=== PATIENT | male | born 1955 | race Caucasian/White ===

== ENCOUNTER 2017-04-23 09:32 | Emergency (ER) | payer BC ==
[2017-04-23 11:16] VITALS: BP 145/81
--- NOTE | 2017-04-23 11:44 | UC ---
Skin Complaint HPI - HPI Summary HPI Summary: Pt presents with c/o tick bite to abdomen. Pt removed tick this morning. Is now concerned that area immediately around skin is slightly erythematous. Pt has history of Lyme in 2010, treated with doxycycline X 3 months. - History of Current Complaint Chief Complaint: UCGeneralIllness Time Seen by Provider: 04/23/17 11:22 Stated Complaint: TICK BITE Hx Obtained From: Patient Onset/Duration: Sudden Onset, Lasting Hours Skin Exposure Onset/Duration: Hours Ago Timing: Constant Onset Severity: Mild Current Severity: Mild Location: Discrete - mid epi umbilicus, anterior abdomen, ~ 2 mm in diameter Character: Redness Aggravating Factor(s): Nothing Alleviating Factor(s): Unknown Associated Signs & Symptoms: Positive: Negative Related History: Insect Bite/Sting Similar Episode/Dx as: lyme - Allergy/Home Medications Allergies/Adverse Reactions: Allergies Allergy/AdvReac Type Severity Reaction Status Date / Time Hydrochlorothiazide Allergy Unknown Unknown Verified 04/23/17 11:00 Reaction Details Venlafaxine [From Effexor] Allergy Unknown Unknown Verified 04/23/17 11:00 Reaction Details CI Pigment Blue 63 Allergy Tinnitus Verified 04/23/17 11:00 [From Cymbalta] Duloxetine [From Cymbalta] Allergy Tinnitus Verified 04/23/17 11:00 Paroxetine [From Paxil] AdvReac Unknown Hallucinati Verified 04/23/17 11:00 ons dust Allergy Unknown Unknown Uncoded 04/23/17 11:00 Reaction Details enviromental Allergy Unknown Unknown Uncoded 04/23/17 11:00 Reaction Details mold Allergy Unknown Unknown Uncoded 04/23/17 11:00 Reaction Details wool Allergy Unknown Unknown Uncoded 04/23/17 11:00 Reaction Details Home Medications: Home Medications ALPRAZolam TAB* [Xanax TAB*] 0.5 mg PO TID PRN 04/23/17 [History Confirmed 04/23] BuPROPion XL* [Bupropion XL*] 300 mg PO DAILY 04/23/17 [History Confirmed ] Desmopressin 0.01% NASAL* [Ddavp 0.01% Nasal *] 1 puff .SEE ORDER SEE INSTRUCTIONS 04/23/17 [History Confirmed 04/23/17] FLUoxetine CAP* [Prozac CAP*] 20 mg PO DAILY 04/23/17 [History Confirmed ] Fenofibrate 54 mg PO DAILY 04/23/17 [History Confirmed 04/23/17] HYDROcodone/ACETAM 10-325 MG(N 1 tab PO Q6H 04/23/17 [History Confirmed 04/23/17 ] Lisinopril TAB* [Prinivil TAB 10 MG*] 40 mg PO DAILY 04/23/17 [History Confirmed 04/23/17] Melatonin 3 mg PO BEDTIME 04/23/17 [History Confirmed 04/23/17] Meloxicam 7.5 mg PO BID 04/23/17 [History Confirmed 04/23/17] Mis Natural Products [Relax & Sleep] 1 tab PO BEDTIME 04/23/17 [History Confirmed 04/23/17] Omeprazole CAP* [Prilosec CAP* 20 MG] 20 mg PO DAILY 04/23/17 [History Confirmed 04/23/17] Primidone TAB(*) [Mysoline TAB(*)] 50 mg PO TID 04/23/17 [History Confirmed ] Tadalafil [Cialis] 5 mg PO DAILY 04/23/17 [History Confirmed 04/23/17] Testosterone [Androgel] 20.25 mg TD DAILY 04/23/17 [History Confirmed 04/23/17] Theanine [l-Theanine] 100 mg PO DAILY 04/23/17 [History Confirmed 04/23/17] Zolpidem CR (NF) [Ambien CR (NF)] 12.5 mg PO BEDTIME PRN 04/23/17 [History Confirmed 04/23/17] Zolpidem TAB* [Ambien*] 10 mg PO BEDTIME PRN 04/23/17 [History Confirmed ] amLODIPine TAB* [Norvasc 5 mg TAB*] 10 mg PO DAILY 04/23/17 [History Confirmed 04/23/17] clonazePAM TAB(*) [Klonopin TAB(*)] 0.5 mg PO QID PRN 04/23/17 [History Confirmed 04/23/17] oxyCODONE SR TAB(*) [Oxycontin 20 mg (*)] 20 mg PO BID 04/23/17 [History Confirmed 04/23/17] Review of Systems Constitutional: Negative Skin: Rash Eyes: Negative ENT: Negative Respiratory: Negative Cardiovascular: Negative Gastrointestinal: Negative Genitourinary: Negative Motor: Negative Neurovascular: Negative Musculoskeletal: Negative Neurological: Negative Psychological: Negative Is Patient Immunocompromised?: No All Other Systems Reviewed And Are Negative: Yes PMH/Surg Hx/FS Hx/Imm Hx Previously Healthy: Yes - history of lyme - Surgical History Surgical History: Yes Surgery Procedure, Year, and Place: - vasectomy & lateral sphincterotomy. 01/08 - (right) ring finger cyst biopsy - Family History Known Family History: Positive: Cardiac Disease - Social History Occupation: Retired Lives: With Family Alcohol Use: Daily Alcohol Amount: 1-2 oz drink Substance Use Type: None Smoking Status (MU): Never Smoked Tobacco Have You Smoked in the Last Year: No Physical Exam Triage Information Reviewed: Yes Appearance: Well-Appearing Vital Signs: Initial Vital Signs Temp 97.9 F 04/23/17 10:49 Pulse 79 04/23/17 10:49 Resp 14 04/23/17 10:49 BP 145/81 04/23/17 10:49 Vital Signs Reviewed: Yes Eye Exam: Normal ENT Exam: Normal Dental Exam: Normal Neck exam: Normal Respiratory Exam: Normal Cardiovascular Exam: Normal Musculoskeletal Exam: Normal Neurological Exam: Normal Psychological Exam: Normal Skin Exam: Other - small circular are ~ 2mm in diameter area on abdomen, erythematous, non tender, epi umbilicus Course/Dx - Differential Diagnoses - Skin Complaint Differential Diagnoses: Local Allergic Reaction, Tick Born Illness - Diagnoses Provider Diagnoses: Insect bite,. localized reaction Discharge - Discharge Plan Condition: Stable Disposition: HOME Prescriptions: DOXYcycline CAP(*) [DOXYcycline 100MG CAP(*)] 200 mg PO DAILY #2 cap Patient Education Materials: Tick Bite (ED) Referrals: Leslie Thapa MD [Primary Care Provider] - If Needed
== END 2017-04-23 11:52 | disposition home or self-care (01) ==
LOC: UCCORT 09:32
DX: S30.861A Insect bite (nonvenomous) of abdominal wall, initial encounter (principal); W57.XXXA Bitten or stung by nonvenomous insect and other nonvenomous arthropods, initial encounter; Y92.9 Unspecified place or not applicable
CPT/HCPCS: 99212; G0463

== ENCOUNTER 2017-04-30 15:09 | Emergency (ER) | payer BC ==
[2017-04-30 16:10] VITALS: BP 156/77
[2017-04-30] MEDS ORDERED: DOXYcycline CAP(*) 100 MG PO ONE (16:15)
--- NOTE | 2017-04-30 16:20 | UC ---
Skin Complaint HPI - HPI Summary HPI Summary: patient found tick in the left inner thigh, removed the obdy, head still inside , he has been trying to dig it out. - History of Current Complaint Chief Complaint: [facility] Time Seen by Provider: 04/30/17 16:10 Stated Complaint: SKIN COMPLAINT (TICK) Hx Obtained From: Patient Onset/Duration: Sudden Onset Skin Exposure Onset/Duration: Hours Ago Timing: Constant Onset Severity: Mild Current Severity: None Location: Discrete Character: Redness, Raised, Painful Related History: Insect Bite/Sting - Allergy/Home Medications Allergies/Adverse Reactions: Allergies Allergy/AdvReac Type Severity Reaction Status Date / Time Hydrochlorothiazide Allergy Unknown Unknown Verified 04/30/17 15:59 Reaction Details Venlafaxine [From Effexor] Allergy Unknown Unknown Verified 04/30/17 15:59 Reaction Details CI Pigment Blue 63 Allergy Tinnitus Verified 04/30/17 15:59 [From Cymbalta] Duloxetine [From Cymbalta] Allergy Tinnitus Verified 04/30/17 15:59 Paroxetine [From Paxil] AdvReac Unknown Hallucinati Verified 04/30/17 15:59 ons dust Allergy Unknown Unknown Uncoded 04/30/17 15:59 Reaction Details enviromental Allergy Unknown Unknown Uncoded 04/30/17 15:59 Reaction Details mold Allergy Unknown Unknown Uncoded 04/30/17 15:59 Reaction Details wool Allergy Unknown Unknown Uncoded 04/30/17 15:59 Reaction Details Review of Systems Constitutional: Negative Skin: Other - tick bite Eyes: Negative ENT: Negative Respiratory: Negative Cardiovascular: Negative Gastrointestinal: Negative Genitourinary: Negative Motor: Negative Neurovascular: Negative Musculoskeletal: Negative Neurological: Negative Psychological: Negative Is Patient Immunocompromised?: No All Other Systems Reviewed And Are Negative: Yes PMH/Surg Hx/FS Hx/Imm Hx Previously Healthy: Yes - Surgical History Surgical History: Yes Surgery Procedure, Year, and Place: - vasectomy. 01/08 - (right) ring finger cyst biopsy - Family History Known Family History: Positive: Cardiac Disease - Social History Alcohol Use: Daily Alcohol Amount: 1-2 oz drink Substance Use Type: None Smoking Status (MU): Never Smoked Tobacco Have You Smoked in the Last Year: No Physical Exam Triage Information Reviewed: Yes Appearance: Well-Appearing, Well-Nourished, Pain Distress Vital Signs: Initial Vital Signs Temp 98.1 F 04/30/17 16:05 Pulse 82 04/30/17 16:05 Resp 14 04/30/17 16:05 BP 156/77 04/30/17 16:05 Vital Signs Reviewed: Yes Eye Exam: Normal ENT Exam: Normal Dental Exam: Normal Neck exam: Normal Respiratory Exam: Normal Cardiovascular Exam: Normal Abdominal Exam: Normal Musculoskeletal Exam: Normal Neurological Exam: Normal Psychological: Positive: Normal Response To Family Skin: Positive: Other - area of erythema and open center from patient digging out the tick, Course/Dx - Course Course Of Treatment: hx obtained, exam performed, meds reviewed, given dose of doxycyline. - Differential Diagnoses - Skin Complaint Differential Diagnoses: Tick Born Illness - Diagnoses Provider Diagnoses: tick bite Discharge - Discharge Plan Condition: Stable Disposition: HOME Patient Education Materials: Tick Bite (ED) Additional Instructions: 1. monitor for signs of lyme disease and follow up with [facility] doctor for treatment.
== END 2017-04-30 16:24 | disposition home or self-care (01) ==
LOC: UCCORT 15:09
DX: S70.362A Insect bite (nonvenomous), left thigh, initial encounter (principal); W57.XXXA Bitten or stung by nonvenomous insect and other nonvenomous arthropods, initial encounter; Y92.9 Unspecified place or not applicable
CPT/HCPCS: 99212; A9270-GY; G0463

== ENCOUNTER 2017-07-30 08:24 | Emergency (ER) | payer BC ==
--- OUTSIDE RECORDS SUMMARY | 2017-07-30 08:36 | XMS REPORT ---
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 [address] Medigap Part B Effective: 2016 Policy Number: BC/BS Of AFTAB Jeanie Holman [id number] PayID: [id number] [address] [address] [place] [address] Problems Date Description Provider Status Onset: 03/22/2010 Anxiety state Leslie Thapa M.D. Active Onset: 07/30/2010 Obstructive sleep apnea syndrome Leslie Thapa M.D. Active Onset: 07/30/2010 Chronic pain syndrome Leslie Thapa M.D. Active Onset: 07/30/2010 Lichen planus Leslie Thapa M.D. Active Onset: 07/30/2010 Benign essential hypertension Leslie Thapa M.D. Active Onset: 10/15/2010 Insomnia Leslie Thapa M.D. Active Onset: 10/15/2010 Depressive disorder Leslie Thapa M.D. Active Onset: 10/15/2010 von Willebrand disorder Leslie Thapa M.D. 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 Active Onset: 04/09/2012 Abnormal urinary stream Leslie Thapa M.D. Active Onset: 05/28/2012 Mixed hyperlipidemia Leslie Thapa M.D. Active Onset: 06/25/2012 Pure hyperglyceridemia Leslie Thapa M.D. Active Onset: 04/07/2016 Impotence of organic origin Leslie Thapa M.D. Active Onset: 04/07/2016 Poor stream of urine Leslie Thapa M.D. Active Onset: 04/07/2016 Loin pain-hematuria syndrome Leslie Thapa M.D. Active Onset: 04/07/2016 Degenerative joint disease involving Leslie Thapa M.D. Active multiple joints Onset: 05/02/2016 Other insomnia Leslie Thapa M.D. Active Family History Date Family Member(s) Problem(s) Comments Father s/p diverticulitis s/p colon resection, CABGx5 1994, Prostate CA with radiation Mother macular degeneration. Arthritis. Dementia Number of Children daughter - Von Willebrand's dis. son, Pelazius merschbacher syndrome duplicate gene for myelin, motor deficits. in a wheel chair, high cognitive functioning, Von Willebrand's dis.l Number of Siblings brother - DM. HTN. Sister - BP. Maternal Grandfather 83, prostate CA. Maternal Grandmother female cancer 70's. 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 Seat Belt/Car Seat Always uses a seat belt Allergies, Adverse Reactions, Alerts Date Description Reaction Status Severity Comments 09/30/2009 Effexor palpitations/ringi active ng in ears. 10/07/2009 Paxil active hallucinations 02/10/2010 Environmental active 02/10/2010 Dust active 02/10/2010 Mold active 03/22/2010 Wool active 03/19/2012 Hydrochlorothiazide intermodal customer service use may active have contributed to Lichen Planus. 04/07/2016 Alfuzosin dangerously low BP active dangerouslyl low BP Medications Medication Date Status Form Strength Qnty SIG Indications Ordering Provider Doxycycline 07/25 Active Capsules 100mg 60cap take one A69.20 Leslie L. Hyclate s capsule by [place] mouth twice a M.D. day on an empty stomach Peridex 07/06 Active Solution 0.12% 236ml Swish 15 ml Leslie LWhitney around mouth [place], for 30 M.D. seconds twice daily. Fluoxetine HCL 06/16 Active Capsules 40mg 60cap 2 by mouth F33.1 Leslie L. /2016 s every day Pj Thapa Zostavax 04/06 Active Suspension 33749Tdf/ 1unit inject subq Leslie LWhitney Rec 0.65ML s mail to [place] patient's M.D. home. Portable O2 02/08 Active 1unit use as G47.33 Leslie LWhitney Tank. s directed. fax carter Thapa. Pj Tadacip 02/08 Active 20mg 80uni 1 by mouth Leslie LWhitney /2016 ts daily Pj Thapa Tadacip 02/07 Active 100un 1 by mouth Leslie LWhitney /2017 its daily. please [place] fax to: Pj [phone] Afrin Nasal 01/18 Active Solution 0.05% prn Leslie LWhitney Victor /2016 Pj Thapa Nasal Cannula 01/18 Active 2L nc fax to G47.33 Leslie Alonzo For Home O2 At /2017 [facility]. Rodriguez Thapa. M.DWhitney Primidone 01/18 Active Tablets 50mg 90tab take one G25.0 Leslie LWhitney /2016 s tablet by [place] mouth three M.D. times a day for tremor. Desmopressin 05/30 Active Solution 0.01% 15ml 1 spray each D68.0 Leslie L. Acetate Victor nostril daily [place], as needed M.DWhitney Zolpidem 05/02 Active Tablets 10mg 30tab take 1/2 to 1 G47.09 Leslie L. Tartrate s tablet by [place], mouth at M.D. bedtime for breakthrough insomnia BD 1ML 04/15 Active Misc 22G X 1" Leslie Bonny. Tuberculin 1 ML [place] Syringe M.DWhitney Detachable NDL/Slip Tip 22GX1" Cialis 04/07 Active Tablets 5mg 30tab 1 by mouth N52.9 Leslie L. s daily Pj Thapa Androgel Pump 03/30 Active Gel 20.25mg/A 150gm apply [address] every morning [place] (1.62%) M.DWhitney Bupropion HCL 03/09 Active Tablets ER 300mg 30tab take one F33.1 Leslie L. ER (XL) 24HR s tablet by [place], mouth every M.D. day Alprazolam 03/09 Active Tablets 0.5mg 30tab take one F41.1 Leslie L. s tablet by [place], mouth daily M.D. as needed for anxiety in addition to the clonazepam Meloxicam 03/09 Active Tablets 7.5mg 180ta take one M54.5 Leslie L. bs tablet by [place], mouth 2 x a M.D. day Lisinopril 03/09 Active Tablets 20mg 90tab take three I10 Leslie L. s tablets by [place], mouth daily M.D. Omeprazole 03/[address] 20mg 30cap Take One K21.9 Leslie L. s Capsule By [place], Mouth Every M.D. Day Fenofibrate 11/26 Active Tablets 54mg 60tab Take One E78.4 Leslie L. s Tablet By [place], Mouth Every M.D. Day Clonazepam 08/08 Active Tablets 0.5mg 120ta 1 tab by F41.1 Leslie L. /2012 bs mouth four [place], times daily M.D. Amlodipine 10/31 Active Tablets 10mg 30tab Take One I10 Leslie L. Besylate s Tablet By [place], Mouth Every M.D. Day Zolpidem 10/23 Active Tablets ER 12.5mg 30tab 1 by mouth at G47.09 Leslie L. Tartrate ER /2011 s at bedtime Pj Thapa Oxycontin Active Tab ER 12H 20mg 90tab Take one M54.5 Charlee Abuse-Det s tablet by APURVA Leach mouth 3 x a day for pain M54.2 Hydrocodone-Acetaminophen Active Tablets 10-325mg 2 @ 6am, Unknown 2 by mouth @ noon and 2 by mouth 6pm Melatonin Active Tablets 10mg one at G47 Unknown bedtime .09 everyday over the counter Potassium & Magnesium Active Capsules 1 daily Unknown Aspartat Melatonin + L-Theanine Active Capsules at Unknown bedtime otc Prednisone 06/27/2017 Hx Tablets 20mg 1 2 by Leslie Alonzo - 1 mouth [place], 07/25/2017 t every day M.D. a x 3 days b then 1 by s mouth every day x 3 days then 1/2 every day x 4 Potassium 01/18/2017 Hx Tablets 75mg 1 by Leslie Alonzo - mouth [place], 05/05/2017 daily M.D. over the counter Testim 08/15/2016 Hx Gel 50mg/5GM 1 apply 5 Leslie Alonzo - (1%) 5 gram to [place], 02/08/2017 0 upper M.D. g shoulder/ m upper arm area daily Vitamin D (Ergocalciferol) 05/23/2016 Hx Capsules [id number] 1 take 1 E55 Leslie Alonzo - 2 capsule .9 [place], 01/18/2017 c by mouth M.D. a once p weekly s for 12 weeks. Testosterone Enanthate 04/15/2016 Hx Solution 200mg/ml 1 1ml Leslie Alonzo - 0 intramusc [place], 08/15/2016 m du Olvia l every 9-14 days #ten mls. Pool Therapy 03/30/2016 Hx chronic M54 Leslie Alonzo - low back .5 [place], 01/18/2017 pain M.D. Physical Therapy 03/17/2016 Hx evaluate Leslie Alonzo - and Treat [place], 01/18/2017 back pain M.DWhitney fax to [facility]. 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 - 0 tablet by .0 [place], 01/18/2017 t mouth [place].Valentin a twice b daily for s tremor Androgel Pump 03/09/2016 Hx Gel 12.5mg/Ac 1 apply E29 Leslie L. - t (1%) 5 once .1 [place], 08/15/2016 0 daily as M.DWhitney g directed m Cialis 03/09/2016 Hx Tablets 5mg 3 take one E29 Leslie L. - 0 tablet .1 [place], 05/05/2017 t daily by Pj a mouth b s Lisinopril 11/26/2012 Hx Tablets 20mg 1 1 po my I10 Leslie L. - 8 mouth [place], 03/09/2016 0 twice M.D. t daily a b s Irbesartan 11/26/2012 Hx Tablets 300mg 9 1 by I10 Charlee - 0 dawit Leach, APURVA 03/09/2016 t every day a moving b permanent [place] Desmopressin Acetate 11/26/2012 Hx Solution 0.01% 3 1 spray D68 Leslie L. - u each .0 [place], 05/30/2016 n nostril M.D. i daily as t needed s Clonazepam 08/08/2012 Hx Tablets 0.5mg 1 po tid 300 Leslie L. - .00 [place], 08/08/2012 Pj garzadt Irbesartan 08/07/2012 Hx Tablets 300mg 3 1 po qd Leslie L. - 0 [place], 12/25/2012 t M.D. a b s Fenofibrate 06/27/2012 Hx Tablets 54mg 3 1 po Leslie L. - 0 daily [place], 12/25/2012 t M.D. a b s Cyclobenzaprine HCL 04/09/2012 Hx Tablets 5mg 6 1-2 po at 728 Leslie L. - 0 hs .85 [place], 03/09/2016 t [place].Valentin a b s Irbesartan 03/28/2012 Hx Tablets 150mg 6 2 po qd Leslie L. - 0 [place], 08/07/2012 lavonne malin b s Clonazepam 03/19/2012 Hx Tablets 0.5mg 1 1 tab po 300 Leslie L. - 8 qid .00 [place], 08/08/2012 0 Code MBartolo brito b s Avapro 03/19/2012 Hx Tablets 150mg 3 1/2 po qd Leslie L. - 0 [place], 03/28/2012 lavonne malin b s Doxycycline Hyclate 02/06/2012 Hx Capsules 100mg 4 1 po bid 784 Leslie L. - 2 for 10 .0 [place], 03/19/2012 c day. Pj malin p s Bupropion HCL XL 11/01/2011 Hx Tablets 300mg 9 take one 311 Leslie L. - ER 24HR 0 tablet by [place], 03/09/2016 lavonne pastor M.D. a every day b moving [place] permanent [place] to [place] Oxycontin 10/24/2011 Hx Tablets 10mg 1 po Family - ER 12HR q4hrs prn Medicine 03/09/2016 [facility] Kaprex 10/24/2011 Hx as Family - directed Medicine 05/28/2012 [facility] Nardova 10/24/2011 Hx 1000mg 2 po qhs Family - Medicine 05/28/2012 [facility] Testosterone Enanthate 10/24/2011 Hx Oil 200mg/ml 1 1 ml Im [place], - 0 every 9 Leslie L. 04/15/2016 m -14 days. l Please Change Bi Pap 10/24/2011 Hx fax to 227 Leslie Alonzo Settings To 14-8 - [facility]. .23 [place], 05/28/2012 M.D. Change Bi-Pap Settings To 10/24/2011 Hx fax to [phone] Leslie Alonzo 14-8. - [facility] .23 [place], 05/28/[phone]. MBartolo Alprazolam 07/12/2011 Hx Tablets 2mg 2 1 po qid Leslie L. - 8 [place], 03/09/2016 lavonne BRITO M.D. a b s Please Change Bi-Pap 07/04/2011 Hx fax to Leslie Alonzo Settings To 10-4. - [facility]: [place], 10/24/[phone]. M.D. Bupropion HCL XL 05/23/2011 Hx Tablets 150mg 6 1- 2 po 311 Leslie L. - ER 24HR 0 qd [place], 11/01/2011 t MLoren. a b s Amlodipine Besylate 05/23/2011 Hx Tablets 5mg 6 2 po 401 Leslie L. - 0 daily in .1 [place], 11/01/2011 t order to Pj a start b weaning s down on doses. Xanatab 01/19/2011 Hx 2mg 2 1 po bid Leslie L. - 6 [place], 04/04/2011 u M.DWhitney n i t s Lisinopril 12/31/2010 Hx Tablets 20mg 6 Take One Leslie L. - 0 Tablet By [place], 12/25/2012 t Mouth M.D. a Twice A b Day s Lovaza 11/19/2010 Hx Capsules 1gm 1 2 po bid 272 Leslie L. - 2 .2 [place], 12/31/2010 0 M.D. c a p s Vitamin D 11/19/2010 Hx Capsules [id number] 1 1 po 268 Leslie L. - 8 weekly x .9 [place], 12/31/2010 c 8. M.D. a p 1 s po monthly thereafte r. Gabapentin 11/05/2010 Hx Capsules 300mg 2 1 po bid Leslie L. - 7 [place], 10/24/2011 0 M.D. c a p s Xanax 10/15/2010 Hx Tablets 2mg 2 1/2 po Leslie L. - 0 qid [place], 12/31/2010 t M.Josh. a b s Lisinopril 10/15/2010 Hx Tablets 30mg 3 1 po 401 Leslie L. - 0 daily .1 [place], 12/31/2010 t M.D. a b s Clonazepam 05/17/2010 Hx Tablets 0.5mg 2 1 po tid 300 Leslie L. - 7 .00 [place], 07/30/2010 0 M.D. t a code a b s Zithromax Z-Zana 05/06/2010 Hx Tablets 250mg 1 2 po qd Kody banerjee x1 then 1 Darlow, 05/12/2010 a po qd as M.D. b directed s Lisinopril 05/05/2010 Hx Tablets 10mg 3 1 po qd 401 Leslie L. - 0 .1 [place], 07/30/2010 t Pj a b s Self Titrating Bipap 05/05/2010 Hx dx: 327 Leslie L. Machine With Heated - Sleep .23 [place], Humidified Air. 10/24/2011 Apnea M.DWhitney Lisinopril 03/01/2010 Hx Tablets 10mg 6 2 po qd 401 Leslie L. - 0 .1 [place], 05/05/2010 t Pj a b s Xanatab 02/10/2010 Hx 2mg 6 1/2 po Leslie L. - 0 qid [place], 02/10/2010 u M.D. n i t s Xanax 02/10/2010 Hx Tablets 2mg 6 1/2 po Leslie L. - 0 qid [place], 03/22/2010 t Pj malin b s Void 01/13/2010 Hx voidxxxxx Leslie L. - xx [place], 02/10/2010 M.D. Zolpidem 11/25/2009 Hx Tablets 10mg 3 1/2 to 1 G47 Charlee - 0 by mouth .09 APURVA Leach 05/23/2016 t at night a for b breakthro s ugh Alprazolam 11/25/2009 Hx Tablets 1mg 1 1/2-1 by F41 Charlee - 8 mouth .9 APURVA Leach 03/09/2016 0 every 8 t hours as a needed b anxiety s code a moving permanent [place] 12/29/ Clonazepam 11/25/2009 Hx Tablets 0.5mg 1 1 po bid Leslie L. - 8 [place], 12/25/2012 0 M.D. t a Code A b s pudt Fluoxetine HCL 11/25/2009 Hx Capsules 20mg 6 Take 2 F33 Leslie L. - 0 Capsules .1 [place], 04/27/2017 c By Mouth M.D. a Daily p s Bupropion HCL XL 11/09/2009 Hx XL 300mg 3 1 po qd 311 Leslie L. - 0 [place], 05/23/2011 u M.D. n i t s Bupropion HCL 10/07/2009 Hx Tablets 150mg 6 1 po bid, 338 Leslie L. - ER 24HR 0 and start .4 [place], 02/10/2010 t irene malin g doses b to 1 qd s in a week. Hydrochlorothiazide 09/30/2009 Hx Tablets 25mg 9 1 po qd Leslie L. - 0 [place], 03/22/2010 t Pj malin b s Lisinopril 09/30/2009 Hx Tablets 20mg 9 1 po qd Leslie L. - 0 [place], 12/31/2010 t Pj malin b s Amlodipine Besylate 09/30/2009 Hx Tablets 10mg 3 1 po qd Leslie L. - 0 [place], 05/23/2011 t Pj malin b s Prozac 09/30/2009 Hx Capsules 20mg 3 1 po qd Family - 0 Medicine 02/10/2010 c [facility] s Bupropion HCL 09/30/2009 Hx Tablets 300mg 9 1 po qd Family - ER 24HR 0 Medicine 11/25/2009 t [facility] s Gabapentin 09/30/2009 Hx Capsules 300mg 2 1 po tid Leslie L. - 7 [place], 05/17/2010 0 Pj malin p s Ambien CR 09/30/2009 Hx Tablets 12.5mg 3 1 qhs prn Leslie L. - ER 0 sleep [place], 03/19/2012 t kayla putnam b s Zolpidem Tartrate 09/30/2009 Hx Tablets 5mg 3 1 po qhs Family - 0 prn Medicine 11/25/2009 t [facility] s Fioricet 09/30/2009 Hx Tablets 50-325-40 3 1 po qid Family - mg 0 prn Medicine 03/09/2016 t headache [facility] s Oxycontin 09/30/2009 Hx Tablets 15mg 1 po q 4 Family - ER 12HR hrs Medicine 03/19/2012 daytime [facility] Oxycontin 09/30/2009 Hx Tablets 20mg 1 po q 4 Family - ER 12HR hrs Medicine 10/24/2011 nightime [facility] Alprazolam 09/30/2009 Hx Tablets 0.5mg 6 q 4 hrs Family - 0 Medicine 11/25/2009 t [facility] b s Cyclobenzaprine HCL 09/30/2009 Hx Tablets 10mg 3 1/2 to 1 Family - 0 tab po qd Medicine 02/10/2010 t muscle [facility] b s Cialis 09/30/2009 Hx Tablets 10mg 1 1/2 -1 po Leslie LWhitney - 8 prn. [place], 03/09/2016 lavonne leary M.D. a permanent b ly to [place] Desmopressin Acetate Victor 09/30/2009 Hx Solution 0.01% 5 1 spray Leslie L. - m each [place], 12/25/2012 l nostril M.DWhitney qd prn Multivitamins 09/30/2009 Hx Tablets 1 po qd [facility] 08/06/2012 [facility] Melatonin 09/30/2009 Hx Capsules 3mg po q hs G47 Family - .09 Medicine 05/23/2016 [facility] Benadryl 09/30/2009 Hx Capsules 25mg 6 2 po q hs Family - 0 Medicine 03/09/2016 c [facility] p s Ibuprofen 09/30/2009 Hx Capsules 200mg 1 po q 4 Family - [facility] Medicine 10/24/2011 [facility] Fluoxetine HCL (PMDD) Hx Tablets 20mg 3 by F33 Unknown - mouth .1 06/16/2017 every day Immunizations CPT Code Status Date Vaccine Lot # [id number] Given 04/27/2017 Pneumococcal Immunization [id number] Given 04/18/2017 Zostivax 01221 Given 04/06/2017 Influenza Vac, Quadrivalent, Slit Virus, Im [id number] 59558 Given 02/16/2017 Tdap Tetanus, W Pertussis [id number] 03437 Given 05/02/2016 Influenza Vac, Quadrivalent, Slit Virus, Im [id number] 70465 Given 04/03/2012 DO Not Use Split Influenza Virus Vaccine [id number] Given 04/22/2011 DO Not Use Split Influenza Virus Vaccine 06887 Given 04/12/2010 DO Not Use Split Influenza Virus Vaccine [id number] 29434 Given 10/01/2007 Tetanus And Diptheria Adult Preservative Free >7Yrs Vital Signs Date Vital Result Comment 07/25/2017 BP Systolic 140 mmHg BP Diastolic 80 mmHg Heart Rate 88 /min Body Temperature 97.9 F Height 67.5 inches 5'7.50" Weight 224.00 lb BMI (Body Mass Index) 34.6 kg/m2 06/16/2017 BP Systolic 166 mmHg BP Diastolic 80 mmHg Heart Rate 72 /min Body Temperature 98.3 F Respiratory Rate 16 /min Height 67.5 inches 5'7.50" Weight 225.25 lb BMI (Body Mass Index) 34.8 kg/m2 05/05/2017 BP Systolic 150 mmHg BP Diastolic 82 mmHg Heart Rate 80 /min Body Temperature 98.2 F Height 67.5 inches 5'7.50" Weight 225.00 lb BMI (Body Mass Index) 34.7 kg/m2 04/06/2017 BP Systolic 140 mmHg BP Diastolic 80 mmHg Heart Rate 76 /min Body Temperature 98.1 F Respiratory Rate 18 /min Weight 221.00 lb 02/08/2017 BP Systolic 138 mmHg BP Diastolic 80 mmHg Heart Rate 76 /min Body Temperature 98.0 F Respiratory Rate 18 /min Weight 220.00 lb 01/18/2017 BP Systolic 140 mmHg BP Diastolic 80 mmHg Heart Rate 72 /min Body Temperature 98.2 F Respiratory Rate 18 /min Weight 215.00 lb 06/29/2016 BP Systolic 144 mmHg BP Diastolic 80 mmHg Heart Rate 84 /min Body Temperature 97.9 F Respiratory Rate 18 /min Weight 221.00 lb 05/23/2016 BP Systolic 170 mmHg BP Diastolic 70 mmHg BP Systolic Recheck 158 mmHg BP Diastolic Recheck 80 mmHg Heart Rate 90 /min Body Temperature 98.6 F Respiratory Rate 16 /min Weight 222.38 lb 05/02/2016 BP Systolic 136 mmHg BP Diastolic 74 mmHg Heart Rate 96 /min Body Temperature 98.1 F Respiratory Rate 16 /min Weight 223.00 lb 04/07/2016 BP Systolic 140 mmHg BP Diastolic 90 mmHg Heart Rate 80 /min Body Temperature 98.1 F Respiratory Rate 18 /min Weight 223.00 lb 03/30/2016 BP Systolic 122 mmHg BP Diastolic 64 mmHg Heart Rate 80 /min Body Temperature 98.0 F Respiratory Rate 18 /min Height 67.5 inches 5'7.50" Weight 224.00 lb BMI (Body Mass Index) 34.6 kg/m2 03/09/2016 BP Systolic 148 mmHg BP Diastolic 92 mmHg Heart Rate 84 /min Body Temperature 98.4 F Respiratory Rate 18 /min Height 67.5 inches 5'7.50" Weight 224.00 lb BMI (Body Mass Index) 34.6 kg/m2 12/25/2012 BP Systolic 132 mmHg BP Diastolic 90 mmHg Heart Rate 84 /min Body Temperature 97.4 F Respiratory Rate 18 /min Height 67.5 inches 5'7.50" Weight 201.00 lb BMI (Body Mass Index) 31.0 kg/m2 12/06/2012 BP Systolic 130 mmHg BP Diastolic 92 mmHg Heart Rate 90 /min Body Temperature 98.0 F Height 67.5 inches 5'7.50" Weight 198.00 lb BMI (Body Mass Index) 30.6 kg/m2 11/26/2012 BP Systolic 148 mmHg BP Diastolic 80 mmHg Heart Rate 80 /min Body Temperature 98.6 F Respiratory Rate 18 /min Height 67.5 inches 5'7.50" Weight 203.00 lb BMI (Body Mass Index) 31.3 kg/m2 08/06/2012 BP Systolic 166 mmHg BP Diastolic 92 mmHg Heart Rate 84 /min Body Temperature 98.6 F Height 67.5 inches 5'7.50" Weight 210.12 lb BMI (Body Mass Index) 32.4 kg/m2 06/25/2012 BP Systolic 158 mmHg BP Diastolic 96 mmHg Heart Rate 84 /min Body Temperature 98.2 F Height 67.5 inches 5'7.50" Weight 217.00 lb BMI (Body Mass Index) 33.5 kg/m2 05/28/2012 BP Systolic 136 mmHg BP Diastolic 84 mmHg Heart Rate 78 /min Body Temperature 98.0 F Height 67.5 inches 5'7.50" Weight 210.00 lb BMI (Body Mass Index) 32.4 kg/m2 04/30/2012 BP Systolic 160 mmHg BP Diastolic 90 mmHg Heart Rate 102 /min Body Temperature 99.0 F Height 67.5 inches 5'7.50" Weight 209.00 lb BMI (Body Mass Index) 32.2 kg/m2 04/09/2012 BP Systolic 138 mmHg BP Diastolic 88 mmHg Heart Rate 78 /min Body Temperature 98.0 F Height 67.5 inches 5'7.50" Weight 217.00 lb BMI (Body Mass Index) 33.5 kg/m2 03/19/2012 BP Systolic 152 mmHg BP Diastolic 90 mmHg Heart Rate 88 /min Body Temperature 98.0 F Height 67.5 inches 5'7.50" Weight 216.00 lb BMI (Body Mass Index) 33.3 kg/m2 02/06/2012 BP Systolic 146 mmHg BP Diastolic 100 mmHg Heart Rate 78 /min Body Temperature 98.4 F Height 67.5 inches 5'7.50" Weight 216.00 lb BMI (Body Mass Index) 33.3 kg/m2 10/24/2011 BP Systolic 176 mmHg BP Diastolic 92 mmHg Heart Rate 84 /min Body Temperature 98.8 F Height 67.5 inches 5'7.50" Weight 219.00 lb BMI (Body Mass Index) 33.8 kg/m2 05/23/2011 BP Systolic 120 mmHg BP Diastolic 80 mmHg Heart Rate 72 /min Body Temperature 98.0 F Height 67.5 inches 5'7.50" Weight 223.00 lb BMI (Body Mass Index) 34.4 kg/m2 04/04/2011 BP Systolic 140 mmHg BP Diastolic 80 mmHg Heart Rate 72 /min Body Temperature 98.6 F Height 67.5 inches 5'7.50" Weight 227.00 lb BMI (Body Mass Index) 35.0 kg/m2 12/31/2010 BP Systolic 152 mmHg BP Diastolic 84 mmHg Heart Rate 76 /min Body Temperature 96.8 F Respiratory Rate 16 /min Height 67.5 inches 5'7.50" Weight 229.00 lb BMI (Body Mass Index) 35.3 kg/m2 11/19/2010 BP Systolic 152 mmHg BP Diastolic 92 mmHg Heart Rate 72 /min Respiratory Rate 15 /min Height 67 inches 5'7" Weight 230.00 lb BMI (Body Mass Index) 36.0 kg/m2 10/15/2010 BP Systolic 148 mmHg BP Diastolic 90 mmHg Heart Rate 92 /min Body Temperature 97.6 F Respiratory Rate 12 /min Height 67 inches 5'7" Weight 232.00 lb BMI (Body Mass Index) 36.3 kg/m2 07/30/2010 BP Systolic 140 mmHg BP Diastolic 80 mmHg Heart Rate 78 /min Body Temperature 97.5 F Height 67 inches 5'7" Weight 238.00 lb BMI (Body Mass Index) 37.3 kg/m2 07/05/2010 BP Systolic 142 mmHg BP Diastolic 82 mmHg Heart Rate 80 /min Body Temperature 97.7 F Respiratory Rate 14 /min Height 67 inches 5'7" Weight 237.00 lb BMI (Body Mass Index) 37.1 kg/m2 05/17/2010 BP Systolic 132 mmHg BP Diastolic 80 mmHg Heart Rate 90 /min Body Temperature 97.6 F Height 67 inches 5'7" Weight 225.00 lb BMI (Body Mass Index) 35.2 kg/m2 05/05/2010 BP Systolic 150 mmHg BP Diastolic 90 mmHg Heart Rate 92 /min Body Temperature 98.3 F Respiratory Rate 16 /min Height 67 inches 5'7" Weight 226.00 lb BMI (Body Mass Index) 35.4 kg/m2 04/12/2010 BP Systolic 134 mmHg BP Diastolic 74 mmHg Heart Rate 66 /min Body Temperature 98.6 F Height 67 inches 5'7" Weight 222.00 lb BMI (Body Mass Index) 34.8 kg/m2 03/22/2010 BP Systolic 144 mmHg BP Diastolic 82 mmHg Heart Rate 72 /min Body Temperature 97.9 F Height 67 inches 5'7" Weight 224.00 lb BMI (Body Mass Index) 35.1 kg/m2 03/01/2010 BP Systolic 150 mmHg BP Diastolic 90 mmHg Heart Rate 88 /min Body Temperature 98.1 F Height 67 inches 5'7" Weight 219.00 lb BMI (Body Mass Index) 34.3 kg/m2 02/22/2010 BP Systolic 136 mmHg BP Diastolic 76 mmHg Heart Rate 78 /min Body Temperature 98.6 F Height 67 inches 5'7" Weight 219.00 lb BMI (Body Mass Index) 34.3 kg/m2 02/10/2010 BP Systolic 154 mmHg BP Diastolic 94 mmHg Heart Rate 80 /min Body Temperature 99.1 F Respiratory Rate 16 /min Height 67 inches 5'7" Weight 219.00 lb BMI (Body Mass Index) 34.3 kg/m2 12/16/2009 BP Systolic 118 mmHg BP Diastolic 72 mmHg Heart Rate 80 /min Height 67 inches 5'7" Weight 218.00 lb BMI (Body Mass Index) 34.1 kg/m2 12/09/2009 BP Systolic 140 mmHg BP Diastolic 82 mmHg Heart Rate 76 /min Height 67 inches 5'7" Weight 221.00 lb BMI (Body Mass Index) 34.6 kg/m2 11/25/2009 BP Systolic 130 mmHg BP Diastolic 80 mmHg Heart Rate 84 /min Body Temperature 98.6 F Height 67 inches 5'7" Weight 222.00 lb BMI (Body Mass Index) 34.8 kg/m2 11/09/2009 BP Systolic 136 mmHg BP Diastolic 78 mmHg Heart Rate 84 /min Body Temperature 97.9 F Height 67 inches 5'7" Weight 223.00 lb BMI (Body Mass Index) 34.9 kg/m2 10/07/2009 BP Systolic 144 mmHg BP Diastolic 80 mmHg Heart Rate 78 /min Body Temperature 97.0 F Height 67 inches 5'7" 09/30/2009 BP Systolic 102 mmHg BP Diastolic 70 mmHg Heart Rate 80 /min Height 67 inches 5'7" Weight 222.00 lb BMI (Body Mass Index) 34.8 kg/m2 Results Test Date Test Result H/L Range Note CBC Auto Diff 05/08/2017 White Blood Count 8.8 10^3/uL 3.5-10.8 Red Blood Count 4.97 10^6/uL 4.0-5.4 Hemoglobin 15.1 g/dL 14.0-18.0 Hematocrit 44 % 42-52 Mean Corpuscular Volume 88 fL 80-94 Mean Corpuscular Hemoglobin 30 pg 27-31 Mean Corpuscular HGB Conc 34 g/dL 31-36 Red Cell Distribution Width 14 % 10.5-15 Platelet Count 227 10^3/uL 150-450 Mean Platelet Volume 9 um3 7.4-10.4 Abs Neutrophils 5.3 10^3/uL 1.5-7.7 Abs Lymphocytes 2.0 10^3/uL 1.0-4.8 Abs Monocytes 1.1 10^3/uL High 0-0.8 Abs Eosinophils 0.2 10^3/uL 0-0.6 Abs Basophils 0.1 10^3/uL 0-0.2 Abs Nucleated RBC 0 10^3/uL Granulocyte % 61.1 % 38-83 Lymphocyte % 22.6 % Low 25-47 Monocyte % 13.1 % High 1-9 Eosinophil % 2.4 % 0-6 Basophil % 0.8 % 0-2 Nucleated Red Blood Cells % 0 Comp Metabolic Panel 05/08/2017 Sodium 135 mmol/L 133-145 Potassium 4.3 mmol/L 3.5-5.0 Chloride 104 mmol/L 101-111 Co2 Carbon Dioxide 23 mmol/L 22-32 Anion Gap 8 mmol/L 2-11 Glucose 106 mg/dL High 70-100 Blood Urea Nitrogen 16 mg/dL 6-24 Creatinine 0.93 mg/dL 0.67-1.17 BUN/Creatinine Ratio 17.2 8-20 Calcium 9.2 mg/dL 8.6-10.3 Total Protein 6.8 g/dL 6.4-8.9 Albumin 4.1 g/dL 3.2-5.2 Globulin 2.7 g/dL 2-4 Albumin/Globulin Ratio 1.5 1-3 Total Bilirubin 0.40 mg/dL 0.2-1.0 Alkaline Phosphatase 61 U/L 34-104 Alt 24 U/L 7-52 Ast 22 U/L 13-39 Egfr Non- 82.1 >60 Egfr 105.5 >60 1 Comprehensive Metabolic Prof 01/23/2017 Sodium 140 mEq/L 134-149 Potassium 4.8 mEq/L 3.6-5.5 Chloride 100 mEq/L 94-112 Carbon Dioxide 24 mEq/L 21-32 Glucose 127 mg/dL High 70-105 BUN 13 mg/dL 6-26 Creatinine 0.8 mg/dL 0.6-1.4 BUN/Creat Ratio 16.3 CALC 8.0-36.0 Calcium 9.4 mg/dL 8.6-10.2 Total Protein 6.8 g/dL 6.4-8.3 Albumin 4.6 g/dL 3.8-5.5 Globulin 2.2 g/dL 2.0-4.8 A/G Ratio 2.1 CALC 0.6-2.3 Alk. Phosphatase 57 U/L 22-95 Alt (SGPT) 35 U/L 7-35 Ast (Sgot) 29 U/L 5-34 Total Bilirubin 0.6 mg/dL 0.2-1.3 GFR Non- >60 ml/min/1.73m^ >=60 GFR >60 ml/min/1.73m^ >=60 Testosterone, Free And Total 01/23/2017 Testosterone, Serum 329 ng/dL 264 -916 2, 3 Free Testosterone(Direct) 7.6 pg/mL 6.6-18.1 2 Laboratory test finding 01/23/2017 TSH 1.22 mIU/L 0.50-6.00 Lipid Profile 01/23/2017 Cholesterol 219 mg/dL High 120-200 Triglycerides 356 mg/dL High 30-200 HDL Cholesterol 52 mg/dL 30-70 LDL (Calculated) 96 CALC 0-129 VLDL Cholesterol 71 mg/dL High 0-50 HDL Risk Factor 4.2 CALC 0.0-4.4 Laboratory test finding 01/23/2017 PSA 0.4 ng/mL 0.0-4.0 Laboratory test finding 01/23/2017 LDL, Direct 111 mg/dL 0-130 Complete Blood Count 01/23/2017 WBC 7.0 x10^3/UL 3.6-9.6 RBC 5.00 x10^6/UL 3.90-5.70 HGB 15.4 g/dL 12.1-17.2 HCT 45 % 36-50 MCV 91.0 fL 82.2-97.4 MCH 30.9 pg 27.6-33.3 MCHC 34.0 g/dL 33.0-35.5 RDW 14.2 % High 11.6-13.7 PLT 220 x10^3/UL 150-400 MPV 7.5 fL 7.4-10.4 Gran # 4.6 x10^3/UL 1.5-7.2 Lymph# 2.0 x10^3/UL 0.7-4.9 [place]# 0.4 x10^3/UL 0.1-0.9 Gran % 63.6 % 42.2-75.2 Lymph % 29.3 % 20.5-51.1 [place]% 7.1 % 1.7-9.3 Testosterone, Free And Total 06/08/2016 Testosterone, Serum 152 ng/dL Low 348-1197 Comment: See Comment: 4 Free Testosterone(Direct) 4.1 pg/mL Low 6.6-18.1 Testosterone, Free And Total 05/02/2016 Testosterone, Serum 881 ng/dL 348 -1197 Comment: See Comment: 5 Free Testosterone(Direct) 17.0 pg/mL 6.6-18.1 Lipid Profile 04/12/2016 Cholesterol 201 mg/dL High 120-200 Triglycerides 306 mg/dL High 30-200 HDL Cholesterol 41 mg/dL 30-70 LDL (Calculated) 99 CALC 0-129 VLDL Cholesterol 61 mg/dL High 0-50 HDL Risk Factor 4.9 CALC High 0.0-4.4 Laboratory test finding 04/12/2016 Vitamin D25 24 Low 30-100 TSH 1.19 mIU/L 0.50-6.00 Complete Blood Count 04/12/2016 WBC 5.4 x10^3/UL 3.6-9.6 RBC 5.00 x10^6/UL 3.90-5.70 HGB 14.9 g/dL 12.1-17.2 HCT 44 % 36-50 MCV 89.0 fL 82.2-97.4 MCH 29.9 pg 27.6-33.3 MCHC 33.7 g/dL 33.0-35.5 RDW 14.2 % High 11.6-13.7 PLT 203 x10^3/UL 150-400 MPV 8.0 fL 7.4-10.4 Gran # 3.2 x10^3/UL 1.5-7.2 Lymph# 1.9 x10^3/UL 0.7-4.9 [place]# 0.3 x10^3/UL 0.1-0.9 Gran % 57.0 % 42.2-75.2 Lymph % 35.8 % 20.5-51.1 [place]% 7.2 % 1.7-9.3 Comprehensive Metabolic Prof 04/12/2016 Sodium 140 mEq/L 134-149 Potassium 4.8 mEq/L 3.6-5.5 Chloride 100 mEq/L 94-112 Carbon Dioxide 25 mEq/L 21-32 Glucose 98 mg/dL 70-105 BUN 14 mg/dL 6-26 Creatinine 1.0 mg/dL 0.6-1.4 BUN/Creat Ratio 14.0 CALC 8.0-36.0 Calcium 8.8 mg/dL 8.6-10.2 Total Protein 6.5 g/dL 6.4-8.3 Albumin 4.3 g/dL 3.8-5.5 Globulin 2.2 g/dL 2.0-4.8 A/G Ratio 2.0 CALC 0.6-2.3 Alk. Phosphatase 58 U/L 22-95 Alt (SGPT) 26 U/L 7-35 Ast (Sgot) 20 U/L 5-34 Total Bilirubin 0.4 mg/dL 0.2-1.3 GFR Non- >60 ml/min/1.73m^ >=60 GFR >60 ml/min/1.73m^ >=60 Laboratory test finding 04/12/2016 LDL, Direct 100 mg/dL 0-130 Testosterone Free+Total 04/12/2016 Testosterone, 95.8 ng/dL Low 348.0- 1197.0 6 LC/MS Total, LC/MS Free Testosterone(Direct) 2.8 pg/mL Low 6.6-18.1 Lipid Profile 06/27/2012 Cholesterol 266 mg/dL High 120-200 HDL 38 mg/dL 30-70 Triglycerides 613 mg/dL High 30-200 HDL Risk Factor 7.1 CALC High 0.0-4.4 LDL (Calculated) 106 CALC 0-129 VLDL (Calculated) 123 mg/dL High 0-50 Laboratory test finding 06/27/2012 LDL (Direct) 102 mg/dL 0-130 Lipid Profile 06/20/2012 Cholesterol 277 mg/dL High 120-200 HDL 43 mg/dL 30-70 Triglycerides 554 mg/dL High 30-200 HDL Risk Factor 6.4 CALC High 0.0-4.4 LDL (Calculated) 122 CALC 0-129 7 VLDL (Calculated) 111 mg/dL High 0-50 Comprehensive Metabolic Prof 06/20/2012 Albumin 4.8 g/dL 3.8-5.5 Alk. Phos. 59 U/L 22-95 Alt (SGPT) 40 U/L 10-40 Ast (Sgot) 29 U/L 5-34 BUN 15 mg/dL 6-26 Calcium 9.2 mg/dL 8.6-10.2 Chloride 100 mEq/L 94-112 Creatinine 1.1 mg/dL 0.6-1.4 Carbon Dioxide 23 mEq/L 21-32 Glucose 96 mg/dL 70-105 Sodium 136 mEq/L 134-149 Total Bilirubin 0.6 mg/dL 0.2-1.3 Total Protein 7.5 g/dL 6.3-8.1 Potassium 4.3 mEq/L 3.6-5.5 Globulin 2.7 g/dL 2.0-4.8 A/G Ratio 1.8 Calc 0.6-2.2 BUN/Creat Ratio 13.8 Calc 8.0-36.0 Laboratory test finding 06/20/2012 Iron 172 g/dL High 60-150 8 B12 485 pg/mL 230-1050 Ferritin 82 ng/mL 22-415 Folate 17.16 ng/mL High 3.00-16.00 LDL (Direct) 132 mg/dL High 0-130 Lyme Igg/M W/RFX West 02/07/2012 Lyme IgG/IgM Ab <0.91 index 0.00- 0.90 9 Lyme Disease Ab, Quant, IgM <0.91 index 0.00-0.90 10 Ehrlichia AB Panel 02/07/2012 E. chaffeensis (HME) IgG Negative Neg:<1 :64 (CTX) Titer E. chaffeensis (HME) IgM Titer SEE NOTE 11 Hge IgG Titer Negative Neg:<1:64 12 Hge IgM Titer Negative Neg:<1:20 13 Babesia Microti AB PNL 02/07/2012 Babesia microti IgM <1:10 Neg:<1: 10 Babesia microti IgG <1:10 Neg:<1:10 14 CBC Manual Diff-a 02/06/2012 WBC 9.8 High 3.6-9.6 RBC 6.23 High 3.90-5.70 Hemoglobin (Fma/CMC/CTX) 18.6 g/dL High 12.1 - 17.2 Hematocrit (Fma/CMC/CTX) 58.4 % High 36.1 - 50.3 Mean Corpuscular Vol 94 82.2-97.4 Mean Corpuscular Hemoglobin 29.8 27.6-33.3 Mean Corpuscular Hemo Concen 31.9 Low 32.0-36.0 Platelets 251 10^3/ul 150-400 RDW 13.7 11.6-13.7 Mean Platelet Volume 8.2 6.5-11.0 Neutrophil 81 Band 3 Lymphocytes 15 Monocyte 1 Comment RBC/PLTS NORMAL Testosterone Free & Weekly 02/06/2012 Testosterone, Serum 1098 ng/dL 348-1197 Bound Testost., % Free+Weakly Bound 28.4 % 9.0-46.0 Testost., F+W Bound 311.8 ng/dL High 40.0-250.0 PSA Total & % Free 10/26/2011 Prostate Specific Ag, 0.4 ng/mL 0.0- 4.0 15 Ser Monitor Serum PSA, Free 0.11 ng/mL N/A 16 % Free PSA 27.5 % 17 Laboratory test finding 10/26/2011 Testosterone, Serum 434 ng/dL 348- 1197 Ua - Non Micro (Fma) 12/31/2010 Appearance CLEAR Color YELLOW Glucose, Urine (Fma/CMC/CTX) NEG Bilirubin NEG Ketones NEG SP Grav 1.025 Blood NEG PH 6.0 Protein NEG Urobil 0.2 Nitrite NEG Leukocytes ([facility]/Centrex) NEG Comprehensive Metabolic Prof 11/24/2010 Albumin 4.6 g/dL 3.8-5.5 Alk. Phos. 66 U/L 22-95 Alt (SGPT) 37 U/L 10-40 Ast (Sgot) 23 U/L 5-34 BUN 15 mg/dL 6-26 Calcium 9.7 mg/dL 8.6-10.2 Chloride 98 mEq/L 94-112 Creatinine 0.9 mg/dL 0.6-1.4 Carbon Dioxide 23 mEq/L 21-32 Glucose 118 mg/dL High 70-105 18 Sodium 136 mEq/L 134-149 Total Bilirubin 0.5 mg/dL 0.2-1.3 Total Protein 7.3 g/dL 6.3-8.1 Potassium 4.5 mEq/L 3.6-5.5 Globulin 2.7 g/dL 2.0-4.8 A/G Ratio 1.7 Calc 0.6-2.2 BUN/Creat Ratio 16.7 Calc 8.0-36.0 Lipid Profile 11/24/2010 Cholesterol 277 mg/dL High 120-200 HDL 40 mg/dL 30-70 Triglycerides 538 mg/dL High 30-200 HDL Risk Factor 6.9 CALC High 0.0-4.0 LDL (Calculated) 129 CALC 0-129 19 VLDL (Calculated) 108 mg/dL High 0-50 Laboratory test finding 11/24/2010 LDL (Direct) 126 mg/dL 0-130 Laboratory test finding 11/19/2010 Hemoglobin A1c 5.7 % 4.1-5.7 (a/[facility],CX) Testosterone Free & 10/15/2010 Testosterone, Serum 624 ng/dL 193-740 20 Weekly Bound Testost., % Free+Weakly Bound 38.7 % 9.0-46.0 20 Testost., F+W Bound 241.5 ng/dL 40.0-250.0 20 Laboratory test finding 10/15/2010 PSA 0.50 ng/mL 0.00-4.00 Comprehensive Metabolic Prof 10/15/2010 Albumin 4.7 g/dL 3.8-5.5 Alk. Phos. 75 U/L 22-95 Alt (SGPT) 33 U/L 10-40 Ast (Sgot) 25 U/L 5-34 BUN 16 mg/dL 6-26 Calcium 9.0 mg/dL 8.6-10.2 Chloride 99 mEq/L 94-112 Creatinine 0.8 mg/dL 0.6-1.4 Carbon Dioxide 23 mEq/L 21-32 Glucose 140 mg/dL High 70-105 21 Sodium 138 mEq/L 134-149 Total Bilirubin 0.3 mg/dL 0.2-1.3 Total Protein 7.3 g/dL 6.3-8.1 Potassium 3.9 mEq/L 3.6-5.5 Globulin 2.5 g/dL 2.0-4.8 A/G Ratio 1.9 Calc 0.6-2.2 BUN/Creat Ratio 18.6 Calc 8.0-36.0 Laboratory test finding 10/15/2010 Estrogens, Total 85 pg/mL 20, 22 Estradiol 56.0 pg/mL 20, 23 Vitamin D, 25 Oh 14.9 ng/mL Low 32.0-100.0 20, 24 Laboratory test 05/05/2010 Quickstrep NEGATIVE Negative finding Laboratory test 05/05/2010 Throat Culture Normal pharyngea 25 finding <SEE NOTE> PSA Total & % 04/12/2010 Prostate Specific 0.4 ng/mL 0.0-4.0 26 Free Ser Monitor Ag, Serum PSA, Free 0.10 ng/mL N/A 27 % Free PSA 25.0 % 28 CBC With Electronic Diff 12/22/2009 White Blood Count 10.5 CUMM 4.8-10.8 Red Cell Count 4.97 CUMM 4.6-6.2 Hemoglobin 14.6 g/dL 14.0-18.0 Hematocrit 43 % 42-52 Mean Corpuscular Volume 86 um3 80-94 Mean Corpuscular Hemoglob 29 pg 27-31 Mean Corpuscular HGB Cone 34 g/dL 32-36 Redcell Distribution WDTH 13 % 10.5-15 Platelet Count 309 CUMM 150-450 Mean Platelet Volume 8.2 um3 7.4-10.4 Gran % 60.2 % 38-83 Lymph % 26.6 % 25-47 Mononuclear % 9.4 % High 1-9 Eosinophil % 2.6 % 0-6 Basophil % 1.2 % 0-2 Abs Lymphs 2.8 1.0-4.8 Abs Mononuclear 1.0 High 0-0.8 Absolute Neutrophil Count 6.3 1.5-7.7 Abs Eosinophils 0.3 0-0.6 Abs Basophils 0.1 0-0.2 Comp Metabolic Panel 12/22/2009 Sodium 134 mmol/L Low 135-145 Potassium 3.7 mmol/L 3.5-5.0 Chloride 102 mmol/L 101-111 Co2 (Carbon Dioxide) 25.0 mmol/L 22-32 Anion Gap 7.0 mmol/L 2-11 29 Glucose 109 mg/dL High 70-100 30 BUN 12 mg/dL 6-24 Creatinine 0.80 mg/dL 0.50-1.40 One Over Creatinine 1.20 BUN/Creatinine Ratio 15.0 8-20 Calcium 9.4 mg/dL 8.1-9.9 31 Total Protein 6.6 GM/DL 6.2-8.1 Albumin 4.2 GM/DL 3.6-5.4 Globulin 2.4 GM/DL 2-4 Albumin/Globulin Ratio 1.8 1-3 Bilirubin Total 0.5 mg/dL 0.4-1.5 32 Alkaline Phosphatase 79 U/L 39-117 Alt (SGPT) 38 U/L 17-63 Ast (Sgot) 29 U/L 12-42 eGFR Non- 106.3 > 60 eGFR 128.6 > 60 33 Laboratory test finding 12/22/2009 Troponin-I (TnI) 0 NG/ML 34 Protime 12/22/2009 Inr 1.03 0.97-1.03 35 Protime 12.2 SEC 11.5-12.2 36 Laboratory test finding 12/22/2009 PTT (Aptt) 31.2 25.15-38.53 37 Testosterone Free & 12/09/2009 Testosterone, Serum 267 ng/dL Low 280- 800 Weekly Bound Testost., % Free+Weakly Bound 27.0 % 9.0-46.0 Testost., F+W Bound 72.1 ng/dL 40.0-250.0 17 Hydroxyprogesterone 12/09/2009 17-Oh Progesterone 70 ng/dL 5-160 Estrogens Fractionated 12/09/2009 Estrone, Serum 62 pg/mL 12-72 38 Estradiol 32.2 pg/mL 7.6-42.6 39 Comprehensive Metabolic Prof 12/09/2009 Albumin 4.4 g/dL 3.8-5.5 Alk. Phos. 75 U/L 22-95 Alt (SGPT) 29 U/L 10-40 Ast (Sgot) 20 U/L 5-34 BUN 16 mg/dL 6-26 Calcium 9.5 mg/dL 8.6-10.2 Chloride 97 mEq/L 94-112 Creatinine 0.9 mg/dL 0.6-1.4 Carbon Dioxide 27 mEq/L 21-32 Glucose 113 mg/dL High 70-105 40 Sodium 137 mEq/L 134-149 Total Bilirubin 0.3 mg/dL 0.2-1.3 Total Protein 7.1 g/dL 6.3-8.1 Potassium 3.8 mEq/L 3.6-5.5 Globulin 2.7 g/dL 2.0-4.8 A/G Ratio 1.6 Calc 0.6-2.2 BUN/Creat Ratio 17.5 Calc 8.0-36.0 Laboratory test finding 12/09/2009 TSH 0.87 mIU/L 0.50-6.00 CBCM-[facility] 12/09/2009 WBC 8.4 3.6-9.6 RBC 5.03 3.90-5.70 Hemoglobin (Fma/CMC/CTX) 15.4 g/dL 12.1 - 17.2 Hematocrit (Fma/CMC/CTX) 41.1 % 36.1 - 50.3 Mean Corpuscular Vol 81.7 Low 82.2-97.4 Mean Corpuscular Hemaglobin 30.6 27.6-33.3 Mean Corpuscular Hemo Concen 37.5 High 33.0-36.0 Platelets 281 10^3/ul 150-400 RDW 13.3 11.6-13.7 Mean Platelet Volume 11.0 High 7.4-10.4 Neutrophil 56 Band 5 Lymphocytes 24 Monocyte 4 Eosinophils 4 Basophils - Metamyelocytes - Myelocytes - Promyelocytes - Blast - Atypical Lymph 7 NRBC - Anisocytosis (Fma/CMC/[facility]rex) - Hypochrom - Polychrom - Poikilocytosis - Macrocytosis - Microcytosis (Fma/CMC/[facility]rex) - Z#Comment RBC PLTS NORM PSA Total & % Free 12/09/2009 Prostate Specific Ag, 0.4 ng/mL 0.0- 4.0 41 Ser Monitor Serum PSA, Free 0.07 ng/mL N/A 42 % Free PSA 17.5 % 43 Laboratory test finding 10/14/2009 [facility] Labs CMP;LIPID;A1C; See Image Report 1 Because ethnic data is not always readily available, this report includes an eGFR for both -Americans and non- Americans. The National Kidney Disease Education Program (NKDEP) does not endorse the use of the MDRD equation for patients that are not between the ages of 18 and 70, are , have extremes of body size, muscle mass, or nutritional status, or are non- or non-. According to the National Kidney Foundation, irrespective of diagnosis, the stage of the disease is based on the level of kidney function: Stage Description GFR(mL/min/1.73 m(2)) 1 Kidney damage with normal or decreased GFR 90 2 Kidney damage with mild decrease in GFR 60-89 3 Moderate decrease in GFR 30-59 4 Severe decrease in GFR 15-29 5 Kidney failure <15 (or dialysis) 2 1 sst 3 Please note reference interval change Adult male reference interval is based on a population of healthy nonobese males (BMI <30) between 19 and 39 years old. Alexia, et.al. JCEM 2017,102;6059-9571. PMID: [id number]. 4 Adult male reference interval is based on a population of lean males up to 40 years old. 5 Adult male reference interval is based on a population of lean males up to 40 years old. 6 Adult male reference interval is based on a population of lean males up to 40 years old. This test was developed and its performance characteristics determined by [facility]. It has not been cleared or approved by the Food and Drug Administration. 7 invalid 8 result bill'd 9 Negative <0.91 Equivocal 0.91 - 1.09 Positive >1.09 Note: The CDC currently advises that Western blot testing be performed following all equivocal or positive EIA results. Final diagnosis should include appropriate clinical findings and a positive EIA which is also positive by Western blot. 10 Negative <0.91 Equivocal 0.91 - 1.09 Positive >1.09 . Note: IgM levels may peak at 3-6 weeks post infection, then gradually decline. FDA currently advises that Western Blot testing be performed following all equivocal or positive EIA results. Final diagnosis should include appropriate clinical findings and a positive EIA which is also positive by Western Blot. 11 Due to indefinite backorder of reagents from the test label machine operator, we are unable to perform this test. IgG titers if 1:64 or greater indicate exposure or acute and convalescent samples showing a four-fold increase, and/or the presence of IgM indicate recent or current infection. . This test was developed and its performance characteristics determined by [facility]. It has not been cleared or approved by the U.S. Food and Drug Administration. . The FDA has determined that such clearance or approval is not necessary. This test is used for clinical purposes. It should not be regarded as investigational or for research. 12 HGE IgG levels are detectable 7 to 10 days post infection and persist approximately one year. . This test was developed and its performance characteristics determined by [facility]. It has not been cleared or approved by the U.S. Food and Drug Administration. . The FDA has determined that such clearance or approval is not necessary. This test is used for clinical purposes. It should not be regarded as investigational or for research. 13 IgM levels usually rise 3 to 5 days post infection and fall to normal levels in approximately 30 to 60 days. . This test was developed and its performance characteristics determined by [facility]. It has not been cleared or approved by the U.S. Food and Drug Administration. . The FDA has determined that such clearance or approval is not necessary. This test is used for clinical purposes. It should not be regarded as investigational or for research. 14 . This test was developed and its performance characteristics determined by [facility]. It has not been cleared or approved by the U.S. Food and Drug Administration. The FDA has determined that such clearance or approval is not necessary. This test is used for clinical purposes. It should not be regarded as investigational or research. 15 Onur ECLIA methodology. . According to the [employer], Serum PSA should decrease and remain at undetectable levels after radical prostatectomy. The AUA defines biochemical recurrence as an initial PSA value 0.2 ng/mL or greater followed by a subsequent confirmatory PSA value 0.2 ng/mL or greater. Values obtained with different assay methods or kits cannot be used interchangeably. Results cannot be interpreted as absolute evidence of the presence or absence of malignant disease. 16 Onur ECLIA methodology. 17 The table below lists the probability of prostate cancer for men with non-suspicious KORY results and total PSA between 4 and 10 ng/mL, by patient age (Catalona et al, SONY 1998, 279:1542). % Free PSA 50-64 yr 65-75 yr 0.00-10.00% 56% 55% 10.01-15.00% 24% 35% 15.01-20.00% 17% 23% 20.01-25.00% 10% 20% >25.00% 5% 9% Please note: Shira et al did not make specific recommendations regarding the use of percent free PSA for any other population of men. 18 RESULT BILL'D 19 INVALID 20 3 SSTS 21 result bill'd 22 Prepubertal <40 Adult Male: 40 - 115 Castrate <40 HMG Treatment: Therapeutic 400 - 800 23 . Normally Menstruating Females: Follicular Phase: 18.9-246.7 Mid-Cycle Peak : 35.5-570.8 Luteal Phase : 22.4-256.0 Postmenopausal........: <7.0-44.5 Males.................: 11.6-41.2 . 24 Recent studies consider the lower limit of 32.0 ng/mL to be a threshold for optimal health. Derian CONTRERAS. J Nutr. 2004;135(2):317-22. 25 Normal pharyngeal alona 26 Onur ECLIA methodology. . According to the [employer], Serum PSA should decrease and remain at undetectable levels after radical prostatectomy. The AUA defines biochemical recurrence as an initial PSA value 0.2 ng/mL or greater followed by a subsequent confirmatory PSA value 0.2 ng/mL or greater. Values obtained with different assay methods or kits cannot be used interchangeably. Results cannot be interpreted as absolute evidence of the presence or absence of malignant disease. 27 Onur ECLIA methodology. 28 The table below lists the probability of prostate cancer for men with non-suspicious KORY results and total PSA between 4 and 10 ng/mL, by patient age (Catalona et al, SONY 1998, 279:1542). % Free PSA 50-64 yr 65-75 yr 0.00-10.00% 56% 55% 10.01-15.00% 24% 35% 15.01-20.00% 17% 23% 20.01-25.00% 10% 20% >25.00% 5% 9% Please note: Shira et al did not make specific recommendations regarding the use of percent free PSA for any other population of men. 29 Anion gap measurement may be of limited value in the presence of any alkalosis, especially in a combined acid base disorder. . 30 Note change in reference range as of 02/28/08. The change was based on recommendations from the [employer]. 31 Please note change in reference range effective 07 . 32 A metabolite of Naproxen, O-desmethylnaproxen, has been shown to interfere with the Jendrassik-Agustina method for measuring total bilirubin. Samples from patients who have taken Naproxen have shown spurious elevation in total bilirubin levels. 33 Because ethnic data is not always readily available, this report includes an eGFR for both -Americans and non- Americans. The National Kidney Disease Education Program (NKDEP) does not endorse the use of the MDRD equation for patients that are not between the ages of 18 and 70, are , have extremes of body size, muscle mass, or nutritional status, or are non- or non-. According to the National Kidney Foundation, irrespective of diagnosis, the stage of the disease is based on the level of kidney function: Stage Description GFR(mL/min/1.73 m(2)) 1 Kidney damage with normal or decreased GFR 90 2 Kidney damage with mild decrease in GFR 60-89 3 Moderate decrease in GFR 30-59 4 Severe decrease in GFR 15-29 5 Kidney failure <15 (or dialysis) 34 New Reference Range and Interpretation effective 04/12/2002 TnI (ng/ml) INTERPRETATION Less Than 0.06 ng/mL NOT SUPPORTIVE OF DIAGNOSIS OF [place] 0.06 - 0.50 ng/ml INDETERMINATE: SUGGEST SERIAL STUDIES IF CLINICALLY INDICATED. Greater than 0.5 ng/mL CONSISTENT WITH DIAGNOSIS OF [place] . 35 Recommended INR for Patients on Oral Anticoagulants Prophylaxis 2.0 - 3.0 Treatment of thrombosis 2.0 - 3.0 Prevention of embolism 2.0 - 3.0 Prevention of embolism from prosthetic heart valves 2.5 - 3.5 36 DIAGNOSIS,TREATMENT,AND THERAPY MUST BE BASED ON THE INR VALUE ALONE. 37 PLEASE NOTE NEW REFERENCE RANGE EFFECTIVE 09. 38 Male Female 0 - 5 years 18 - 53 19 - 46 6 - 7 years 17 - 48 17 - 44 8 - 9 years 20 - 54 31 - 70 10 - 11 years 21 - 49 28 - 68 12 - 14 years 17 - 44 57 - 140 Adult 12 - 72 See below Female: Follicular Phase 37 - 138 Mid-cycle 60 - 229 Luteal Phase 50 - 114 Post Menopausal 14 - 103 39 Onur ECLIA methodology 40 result bill'd 41 Onur ECLIA methodology. . According to the [employer], Serum PSA should decrease and remain at undetectable levels after radical prostatectomy. The AUA defines biochemical recurrence as an initial PSA value 0.2 ng/mL or greater followed by a subsequent confirmatory PSA value 0.2 ng/mL or greater. Values obtained with different assay methods or kits cannot be used interchangeably. Results cannot be interpreted as absolute evidence of the presence or absence of malignant disease. 42 Onur ECLIA methodology. 43 The table below lists the probability of prostate cancer for men with non-suspicious KORY results and total PSA between 4 and 10 ng/mL, by patient age (Shira et al, SONY 1998, [id number]). % Free PSA 50-64 yr 65-75 yr 0.00-10.00% 56% 55% 10.01-15.00% 24% 35% 15.01-20.00% 17% 23% 20.01-25.00% 10% 20% >25.00% 5% 9% Please note: Shira et al did not make specific recommendations regarding the use of percent free PSA for any other population of men. Procedures Date CPT Code Description Status Comment 11/19/2010 [id number] Finger Or Heel Stick Completed 07/10/2004 Colonoscopy Completed normal. no polyps. Encounters Type Date Location Provider CPT E/M Dx Office Visit 06/16/2017 2:40p [facility] Office Leslie Thapa M.D. 08928 F33.1 E29.1 F41.1 I10 Office Visit 05/05/2017 11:00a [facility] Office Leslie Thapa M.D. 10451 D68.0 G47.33 F43.21 I10 Office Visit 04/06/2017 10:00a [facility] Leslie Thapa M.D. 18652 G47.33 D68.0 R25.2 I10 F43.21 Z23 Office Visit 02/08/2017 3:20p [facility] Leslie Thapa M.D. 71365 F41.1 R39.12 G47.33 Office Visit 01/18/2017 1:40p [facility] Office Leslie Thapa M.D. 98826 G47.33 G47.09 M15.0 M54.5 Z13.220 E29.1 E78.1 Office Visit 06/29/2016 1:40p [facility] Leslie Thapa M.D. 14783 E29.1 G47.09 F41.1 Office Visit 05/23/2016 1:30p [facility] Office Leslie Thapa M.D. 89051 E29.1 E55.9 Office Visit 05/02/2016 3:00p [facility] Office Leslie Thapa M.D. 56962 E29.1 K43.9 F41.1 G47.09 Z23 Office Visit 04/07/2016 11:20a [facility] Leslie Thapa M.D. 00214 E29.1 N52.9 R39.12 N39.8 E55.9 F43.23 M15.0 E78.1 Office Visit 03/30/2016 2:40p Main Office Leslie Thapa M.D. 31382 M54.5 E29.1 Office Visit 03/09/2016 1:15p [place] [address] I10 E78.4 D68.0 F41.1 F33.1 G47.09 M54.5 M54.2 K21.9 G25.0 E29.1 Office Visit 12/25/2012 1:40p Main Office Leslie Thapa M.D. 53410 401.1 272.2 286.4 780.52 300.00 338.4 Office Visit 12/06/2012 5:30p Main Office Kathi Crouch, [facility] [address] 959.6 Office Visit 11/26/2012 7:30p Main Office Leslie Thapa M.D. 49845 780.52 401.1 327.23 272.2 286.4 Office Visit 08/06/2012 5:40p Main Office Leslie Thapa M.D. 79020 300.00 780.52 401.1 Office Visit 06/25/2012 5:50p Main Office Leslie Thapa M.D. 23981 300.00 272.1 790.6 401.1 379.24 Office Visit 05/28/2012 5:00p Main Office Leslie Thapa M.D. 17986 401.1 338.4 300.00 780.52 272.2 272.1 Office Visit 04/30/2012 6:40p Main Office Leslie Thapa M.D. 13728 780.52 401.1 338.4 Office Visit 04/09/2012 6:40p Main Office Leslie Thapa M.D. 412[address] 338.4 780.52 728.85 401.1 788.69 Office Visit 03/19/2012 5:00p Main Office Leslie Thapa M.D. 75732 338.4 300.00 401.1 Office Visit 02/06/2012 6:00p Main Office Leslie Thapa M.D. 09070 784.0 257.2 338.4 300.00 Office Visit 10/24/2011 7:00p Main Office Leslie Thapa M.D. 67111 401.1 302.72 780.52 300.00 327.23 Office Visit 05/23/2011 5:20p Main Office Leslie Thapa M.D. 61953 780.52 401.1 311 300.00 338.4 Office Visit 04/04/2011 7:20p Main Office Leslie Thapa M.D. 59510 719.45 300.00 401.1 Office Visit 12/31/2010 4:00p [facility] Leslie Thapa M.D. 32945 V70.0 272.1 401.1 278.02 300.00 Office Visit 11/19/2010 3:20p [facility] Leslie Thapa M.D. 12702 401.1 790.6 780.52 268.9 272.2 250.00 272.1 Office Visit 10/15/2010 2:00p Main Office Leslie Thapa M.D. 49455 401.1 807.00 600.00 268.9 300.00 780.52 311 286.4 697.0 Office Visit 07/30/2010 2:00p [facility] Leslie Thapa M.D. 49572 327.23 338.4 697.0 807.00 401.1 300.00 Office Visit 07/05/2010 4:10p [facility] Leslie Thapa M.D. 85890 327.23 338.4 278.02 272.1 697.0 300.00 807.00 Office Visit 05/17/2010 8:00p Main Office Leslie Thapa M.D. 27165 300.00 338.4 780.52 Office Visit 05/05/2010 3:30p Main Office Leslie Thapa M.D. 19512 462 327.23 Office Visit 04/12/2010 8:10p Main Office Leslie Thapa M.D. 17434 311 401.1 338.4 327.23 V04.81 v04.81 697.0 257.2 Office Visit 03/22/2010 8:00p Main Office Leslie Thapa M.D. 58280 300.00 302.72 Office Visit 03/01/2010 8:00p Main Office Leslie Thapa M.D. 03697 697.0 401.1 311 300.00 Office Visit 02/22/2010 8:00p Main Office Leslie Thapa M.D. 77198 338.4 300.00 401.1 257.2 Office Visit 02/10/2010 1:00p Main Office Leslie Thapa M.D. 54410 300.00 338.4 Office Visit 12/16/2009 1:00p Main Office Leslie Thapa M.D. 00944 300.00 257.2 401.1 311 338.4 697.0 327.23 Office Visit 12/09/2009 1:00p Main Office Leslie Thapa M.D. 44423 780.71 257.2 401.1 311 338.4 780.52 300.00 Office Visit 11/25/2009 1:00p Main Office Leslie Thapa M.D. 11925 401.1 311 286.4 302.72 338.4 780.52 300.00 Office Visit 11/09/2009 7:40p Main Office Leslie Thapa M.D. 40537 311 697.0 300.00 338.4 327.23 Office Visit 10/07/2009 2:30p Main Office Leslie Thapa M.D. 25044 697.0 311 300.00 338.4 302.72 Office Visit 09/30/2009 2:00p Main Office Leslie Thapa M.D. 59126 279.49 338.4 Plan of Care Future Appointment(s):08/10/2017 1:00 pm - Leslie Thapa M.D. at [facility]07/25/2017 - Leslie Thapa M.D.E29.1 Testicular hypofunctionComments:will double dose. will get bloodwork in a month.A69.20 Lyme disease, unspecifiedNew Medication:Doxycycline Hyclate 100 mgComments: doxycycline twice daily for a month on an empty stomach.if the doxy starts to bother put a small amount of non dairy food in your stomach, or a meal. Or it can be changed.R68.89 Other general symptoms and signsComments:[employer] weight loss, he also does it for smoking.I10 Essential (primary) hypertensionNew Labs:CBC Electronic-ALL Lab CompaniComp Metabolic-ALL Lab CompaniLipid Panel-ALL Lab [facility] ([facility])E78.2 Mixed onnxxeawioasxdY21.9 Vitamin D deficiency, unspecifiedNew Labs:Vitamin D, 25Hydroxy(a/LCZ12.5 Encounter for screening for malignant neoplasm of prostateNew Labs:PSA (ALL Lab Comp)AllComments:~B_~U_Medication Management~b_~u _ Patient Understands medications he's taking? Yes No Are there Barriers to Adherence? Yes No Has the patient been asked about herbal supplements and therapies, and OTC meds? Yes No L theanine for sleep. ~B_~U_Care Plan~b_~u_1. Patient has been queried about patient's goals /preferences and functional/lifestyle goals at relevant visits. If relevant, describe: na2. Treatment goals as explained to the patient: above3. Are there barriers tomeeting treatment goals? Yes No If Yes, please describe:4. Self-Management goals as described to the patient: Yes No take all meds as directed.keep track of your symptoms of joint pain and fatigue vs a vis lyme disease.
[2017-07-30 08:44] VITALS: BP 149/76
--- NOTE | 2017-07-30 09:11 | UC ---
Respiratory Complaint HPI - HPI Summary HPI Summary: Nasal congestion, "scratchy throat", Post nasal drip and nausea this morning. He is on medications for lyme disease day 5. No vomiting, diarrhea, fever. tested neg for the flu. - History of Current Complaint Chief Complaint: UCGeneralIllness Stated Complaint: NAUSEOUS Time Seen by Provider: 07/30/17 08:50 Hx Obtained From: Patient Onset/Duration: Gradual Onset, Lasting Hours Timing: Constant Severity Initially: Mild Severity Currently: Mild Character: Cough: Nonproductive Aggravating Factors: Deep Breaths, Recumbent Position Alleviating Factors: Upright Position, Spontaneous Resolution Associated Signs And Symptoms: Positive: URI, Nasal Congestion. Negative: Dyspnea, Fever, Chills, Pleuritic Chest Pain, Wheezing, Hemoptysis, Dizziness, Calf Pain, Calf Swelling - Allergies/Home Medications Allergies/Adverse Reactions: Allergies Allergy/AdvReac Type Severity Reaction Status Date / Time Hydrochlorothiazide Allergy Unknown Unknown Verified 07/30/17 08:37 Reaction Details Venlafaxine [From Effexor] Allergy Unknown Unknown Verified 07/30/17 08:37 Reaction Details CI Pigment Blue 63 Allergy Tinnitus Verified 07/30/17 08:37 [From Cymbalta] Duloxetine [From Cymbalta] Allergy Tinnitus Verified 07/30/17 08:37 Paroxetine [From Paxil] AdvReac Unknown Hallucinati Verified 07/30/17 08:37 ons dust Allergy Unknown Unknown Uncoded 07/30/17 08:37 Reaction Details enviromental Allergy Unknown Unknown Uncoded 07/30/17 08:37 Reaction Details mold Allergy Unknown Unknown Uncoded 07/30/17 08:37 Reaction Details wool Allergy Unknown Unknown Uncoded 07/30/17 08:37 Reaction Details Home Medications: Home Medications ARIPiprazole TAB* [Abilify 2 MG TAB*] 2 mg PO DAILY 07/30/17 [History Confirmed 07/30/17] DOXYcycline CAP(*) [DOXYcycline 100MG CAP(*)] 100 mg PO BID 07/30/17 [History Confirmed 07/30/17] FLUoxetine CAP* [PROzac CAP*] 80 mg PO DAILY 07/30/17 [History Confirmed ] PMH/Surg Hx/FS Hx/Imm Hx Previously Healthy: No - Lyme's disease. No prior lung disease. - Surgical History Surgical History: Yes Surgery Procedure, Year, and Place: - vasectomy. 01/08 - (right) ring finger cyst biopsy - Family History Known Family History: Positive: Cardiac Disease - Social History Lives: With Family Alcohol Use: 2 daily Alcohol Amount: 1-2 oz drink Substance Use Type: None Smoking Status (MU): Never Smoked Tobacco Have You Smoked in the Last Year: No Household Exposure Type: Cigarettes - Immunization History Most Recent Influenza Vaccination: April 2017 Most Recent Tetanus Shot: 2016 Most Recent Pneumonia Vaccination: 2016 Review of Systems ENT: Sore Throat Respiratory: Cough All Other Systems Reviewed And Are Negative: Yes Physical Exam Triage Information Reviewed: Yes Appearance: Well-Appearing, No Pain Distress, Obese Vital Signs: Initial Vital Signs Temp 98.3 F 07/30/17 08:34 Pulse 76 07/30/17 08:34 Resp 18 07/30/17 08:34 BP 149/76 07/30/17 08:34 Pulse Ox 99 07/30/17 08:34 Vital Signs Reviewed: Yes Eyes: Positive: Conjunctiva Clear ENT: Positive: Normal ENT inspection, Hearing grossly normal, Pharynx normal, Nasal congestion, TMs normal. Negative: Pharyngeal erythema, Nasal drainage, TM bulging, TM dull, TM red, Tonsillar swelling, Tonsillar exudate, Trismus, Hoarse voice Neck: Positive: Supple, Nontender, No Lymphadenopathy. Negative: Nuchal Rigidity Respiratory: Positive: Chest non-tender, Lungs clear, Normal breath sounds, No respiratory distress, No accessory muscle use. Negative: Respiratory distress, Decreased breath sounds, Accessory muscle use, Crackles, Rhonchi, Stridor Cardiovascular: Positive: No Murmur, Pulses Normal, Brisk Capillary Refill Abdomen Description: Positive: No Organomegaly, Soft. Negative: Distended, Guarding Musculoskeletal: Positive: Strength Intact, ROM Intact, No Edema Neurological: Positive: Alert, Muscle Tone Normal. Negative: Fatigued Psychological: Positive: Age Appropriate Behavior Skin: Negative: rashes UC Diagnostic Evaluation - Laboratory O2 Sat by Pulse Oximetry: 99 Respiratory Course/Dx - Course Course Of Treatment: URI. abd exam completely benign without tenderness. - Differential Dx/Diagnosis Provider Diagnoses: uri. nausea. Discharge - Discharge Plan Condition: Good Disposition: HOME Prescriptions: Benzonatate CAP* [Tessalon 100 MG CAP*] 100 mg PO TID PRN #[id number] PRN Reason: Cough Patient Education Materials: Upper Respiratory Infection (DC) Referrals: Leslie Thapa MD [Primary Care Provider] -
== END 2017-07-30 09:10 | disposition home or self-care (01) ==
LOC: UCCORT 08:24
DX: J06.9 Acute upper respiratory infection, unspecified (principal); R11.0 Nausea; A69.20 Lyme disease, unspecified; Z72.89 Other problems related to lifestyle
CPT/HCPCS: 99212; G0463

== ENCOUNTER 2018-01-30 17:42 | Emergency (ER) | payer BC, OTHER ==
[2018-01-30 18:06] VITALS: BP 139/78
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
== END 2018-01-30 19:58 | disposition home or self-care (01) ==
LOC: UCCORT 17:42
DX: M54.2 Cervicalgia (principal); M54.5 Low back pain; V43.52XA Car driver injured in collision with other type car in traffic accident, initial encounter; Y93.89 Activity, other specified; Y92.410 Unspecified street and highway as the place of occurrence of the external cause; Z88.8 Allergy status to other drugs, medicaments and biological substances
CPT/HCPCS: 72110; 72125; 99213; G0463

== ENCOUNTER → 2018-07-04 10:33 | Day surgery (SDC) | payer BC ==
[~2018-07-04 10:33] MED LIST: Bacitracin OINTMENT* 0.5% 0.5 oz TUBE ONE; Buffered Lidocaine 0.9% SYRIN* 5 ML/SYR SYRINGE INTRADERM ONE; Dexamethasone IV* 4 MG/ML 1 ML (4 MG) ONE; Famotidine IV* 10 MG/ML 2 ML (20 mg) IV ONE; Famotidine IV* 10 MG/ML 2 ML (20 mg) ONE; KETAMINE HCL* 50 MG/ML 10 ML VIAL ONE; Lactated Ringers 1000 ML Bag* 1,000 ML IV SCH; Lidocain 1% EPI 1:100,000 * 30 ML MDV ONE; Lidocaine 4% TOPICAL* 50 ML TOP.SOLN ONE; Midazolam* 1 MG/ML 2 ML VIAL (2 MG) ONE; Midazolam* 1 MG/ML 5 ML VIAL (5 MG) ONE; Naloxone* 0.4 MG/ML 1 ML VIAL IV PRN; Ondansetron INJ* 2 MG/ML VIAL IV PRN; Oxymetazoline 0.05% NASAL SPR* 15 ML BTL ONE; Propofol* 10 MG/ML 20 ML BTL ONE; fentaNYL* 50 MCG/ML 2 ML VIAL (100 MCG VIAL) IV PRN; fentaNYL* 50 MCG/ML 2 ML VIAL (100 MCG VIAL) ONE
[2018-07-04 16:21] VITALS: BP 158/73
--- NOTE | 2018-07-04 19:31 | OP ---
OPERATIVE REPORT: DATE OF OPERATION: 07/04/18 - [facility] DATE OF : 51 SURGEON: Gilson Martinez MD TIME RECORDER: None. ANESTHESIOLOGIST: Pual Dickson MD ANESTHESIA: Local MAC. PRE-OP DIAGNOSIS: Nasal airway obstruction secondary to bilateral inferior turbinate hypertrophy. POST-OP DIAGNOSIS: Nasal airway obstruction secondary to bilateral inferior turbinate hypertrophy. OPERATIVE PROCEDURE: Bilateral outfracture and cautery of the inferior turbinates. DESCRIPTION OF PROCEDURE: This is a 62-year-old male, who has had longstanding trouble with nasal congestion, which has made it very difficult for him to interface with CPAP. On exam in the office although the patient did have a modestly deviated septum, it seemed that inferior turbinate hypertrophy was the majority of his problem. The decision was made to proceed with bilateral inferior turbinate reduction. On 07/04/18, the patient was brought to the operating room. Sedation was ensured by the anesthesiologist. Pledgets soaked with 4% lidocaine and Afrin were placed into both nasal cavities. Once there was adequate time for vasoconstriction, both inferior turbinates were then injected with 1% lidocaine with 1:100,000 epinephrine. A total of approximately 6 cc was used. The turbinates were then infractured. Three to four passes were made through each turbinate using the Elmed bipolar device. The turbinates were then outfractured. There was minimal bleeding from the procedure. The patient was then delivered to the PACU in stable condition. [id number]/CPS #: [id number] MTDD
== END | disposition home or self-care (01) ==
LOC: OR 10:33
PROVIDERS: ATTEND Otolaryngology
DX: J34.3 Hypertrophy of nasal turbinates (principal); G47.33 Obstructive sleep apnea (adult) (pediatric); I10 Essential (primary) hypertension; F41.8 Other specified anxiety disorders; E78.5 Hyperlipidemia, unspecified
CPT/HCPCS: A9270-GY; J1100; J2250; J2704; J3010

== ENCOUNTER 2022-01-09 09:24 | Inpatient (IN) ==
[2022-01-09 10:13] LABS: ABS Eosinophils 0.2 10^3/ul (0-0.6); ABS Lymphocytes 1.3 10^3/ul (1.0-4.8); ABS Neutrophils 7.8 10^3/ul (1.5-7.7); Eosinophil % 2.1 %; Hematocrit 47 % (42-52); Hemoglobin 15.7 g/dL (14.0-18.0); Lymphocyte % 12.5 %; Mean Corpuscular HGB Conc 34 g/dL (31-36); Mean Corpuscular Hemoglobin 29 pg (27-31); Mean Corpuscular Volume 87 fL (80-94); Mean Platelet Volume 9.2 fL (7.4-10.4); Nucleated Red Blood Cells % 0.1; Platelet Count 243 10^3/uL (150-450); Red Blood Count 5.39 10^6 /uL (4.18-5.48); Red Cell Distribution Width 15 % (10-15); White Blood Count 10.4 10^3/uL (3.5-10.8)
[2022-01-09 10:58] LABS: Albumin 4.3 g/dL (3.2-5.2); Albumin/Globulin Ratio 1.7 (1-3); Calcium 9.6 mg/dL (8.6-10.3); Globulin 2.6 g/dL (2-4); Potassium 4.2 mmol/L (3.5-5.0); Total Bilirubin 0.5 mg/dL (0.2-1.0); Total Protein 6.9 g/dL (6.4-8.9); eGFR CKD-EPI 88.3 (>60)
[2022-01-09 11:46] LABS: Activated Partial Thrombo Time 31.4 seconds (26.0-38.0); INR 1.1 (0.86-1.15)
[2022-01-09] MEDS ORDERED: levETIRAcetam 1000MG IVPREMIX 1,000 MG/100 ML BAG IVPB ONE (12:53)
[2022-01-09] MEDS ORDERED: Lidocaine 1% w EPI 1:200,000 SDV 30 ML VIAL ONE (15:47)
[2022-01-09] MEDS ORDERED: Gelfoam 12-7 ADSORBABL SPONGE ONE (15:48)
[2022-01-09] MEDS ORDERED: Thrombin 5,000 UNITS 1 APPLIC KIT - topical use - TOPICAL ONE (15:48)
[2022-01-09] MEDS ORDERED: fentaNYL 100 mcg/2 ml 50 MCG/ML VIAL ONE ×2 (15:55→17:25)
[2022-01-09] MEDS ORDERED: Succinylcholine 200 mg VIAL 20 mg/ml 10 ml VIAL (200 mg) ONE (15:55)
[2022-01-09] MEDS ORDERED: Lidocaine 2% PF 5 ML VIAL ONE (15:55)
[2022-01-09] MEDS ORDERED: Propofol 10 MG/ML 20 ML BTL ONE (15:55)
[2022-01-09] MEDS ORDERED: Phenylephrine IV 10 MG/ML 1 ml VIAL ONE (15:55)
[2022-01-09] MEDS ORDERED: Rocuronium 50 mg VIAL 10 mg/ml 5 ml VIAL (50 mg) ONE (16:00)
[2022-01-09] MEDS ORDERED: ceFAZolin 2 GM in NS PREMIX 2 GM/100 ML BAG IVPB ONE (16:06)
[2022-01-09] MEDS ORDERED: Dextrose 50% Syringe 50 ml 25 GM/50 ML SYRINGE ONE (16:37)
[2022-01-09] MEDS ORDERED: Esmolol 10 MG/ML 10 ML (100 mg) ONE (17:26)
[2022-01-09] MEDS ORDERED: Sugammadex 500 MG/5 ML 5 ml VIAL IV PUSH ONE (17:39)
[2022-01-09] MEDS ORDERED: Ondansetron 4 mg VIAL 2 MG/ML 2 ml VIAL ONE (17:41)
[2022-01-09] MEDS ORDERED: Ondansetron 4 mg VIAL 2 MG/ML 2 ml VIAL IV PRN (17:45)
[2022-01-09] MEDS ORDERED: hydrALAZINE 20 mg/ml 1 ML Vial IV ONE (17:56)
[2022-01-09] MEDS ORDERED: Labetalol IV 5 MG/ML 20 ml VIAL IV PUSH PRN (18:02)
[2022-01-09] MEDS ORDERED: Acetaminophen IV 1 GM/100ML 100 ML IV PRN (18:27)
[2022-01-09] MEDS ORDERED: Acetaminophen IV 1 GM/100ML 100 ML IV ONE (18:55)
[2022-01-09] MEDS: HYDROcodone/ACETAMIN 5/325 mg TAB PO PRN (20:00)
[2022-01-09] MEDS: Lactated Ringers 1000 ml BAG 1,000 ML IV SCH (20:00)
[2022-01-09] MEDS ORDERED: Morphine 4 MG/ML VIAL (1 ml) IV ONE (21:24)
[2022-01-09] MEDS ORDERED: fentaNYL 100 mcg/2 ml 50 MCG/ML VIAL IV SLOW PU ONE (21:25)
[2022-01-10] MEDS: HYDROcodone/ACETAMIN 5/325 mg TAB PO PRN ×3 (01:21→09:26)
[2022-01-10] MEDS: levETIRAcetam 500 MG IVPREMIX 500 MG/100 ML BAG IV SCH ×2 (01:22→13:50)
[2022-01-10] MEDS: niCARdipine 0.1MG/ML IVPREMIX 20 MG/200 ML BAG IV SCH ×2 (01:23→05:57)
[2022-01-10] MEDS ORDERED: fentaNYL 100 mcg/2 ml 50 MCG/ML VIAL IV SLOW PU ONE ×2 (04:58→12:07)
[2022-01-10 05:28] LABS: ABS Basophils 0.1 10^3/ul (0-0.2); ABS Eosinophils 0.2 10^3/ul (0-0.6); ABS Lymphocytes 1.3 10^3/ul (1.0-4.8); ABS Monocytes 0.9 10^3/ul (0-0.8); ABS Neutrophils 8.9 10^3/ul (1.5-7.7); Eosinophil % 1.8 %; Hematocrit 39 % (42-52); Hemoglobin 13.1 g/dL (14.0-18.0); Lymphocyte % 11.9 %; Mean Corpuscular HGB Conc 34 g/dL (31-36); Mean Corpuscular Hemoglobin 29 pg (27-31); Mean Corpuscular Volume 87 fL (80-94); Mean Platelet Volume 8.9 fL (7.4-10.4); Platelet Count 203 10^3/uL (150-450); Red Cell Distribution Width 15 % (10-15); White Blood Count 11.3 10^3/uL (3.5-10.8)
[2022-01-10 05:49] LABS: Blood Urea Nitrogen 7 mg/dL (6-24); CO2 Carbon Dioxide 22 mmol/L (22-32); Chloride 108 mmol/L (101-111); Glucose 98 mg/dL (70-100); Sodium 137 mmol/L (135-145); eGFR CKD-EPI 102.6 (>60)
[2022-01-10 06:07] LABS: Anion Gap 7 mmol/L (2-11)
[2022-01-10 06:49] LABS: Potassium Redraw 3.8 mmol/L (3.5-5.0)
[2022-01-10] MEDS: CMCS: Epleronone 25 mg TAB (NF) PO SCH (08:30)
[2022-01-10] MEDS: Lactated Ringers 1000 ml BAG 1,000 ML IV SCH ×2 (08:46→22:19)
[2022-01-10 12:56] LABS: Magnesium 1.6 mg/dL (1.9-2.7)
[2022-01-10] MEDS ORDERED: Magnesium Sulf 4 GM/100 ML IV 4,000 MG/100 ML BAG IVPB ONE (16:20)
[2022-01-10] MEDS: fentaNYL 100 mcg/2 ml 50 MCG/ML VIAL IV SLOW PU PRN ×2 (17:12→22:13)
[2022-01-11] MEDS: levETIRAcetam 500 MG IVPREMIX 500 MG/100 ML BAG IV SCH (01:44)
[2022-01-11] MEDS: fentaNYL 100 mcg/2 ml 50 MCG/ML VIAL IV SLOW PU PRN ×2 (03:45→08:26)
[2022-01-11 06:07] LABS: ABS Eosinophils 0.4 10^3/ul (0-0.6); ABS Lymphocytes 1.7 10^3/ul (1.0-4.8); ABS Neutrophils 5.3 10^3/ul (1.5-7.7); Eosinophil % 4.8 %; Hematocrit 40 % (42-52); Hemoglobin 13.7 g/dL (14.0-18.0); Lymphocyte % 19.8 %; Mean Corpuscular HGB Conc 34 g/dL (31-36); Mean Corpuscular Hemoglobin 30 pg (27-31); Mean Corpuscular Volume 87 fL (80-94); Mean Platelet Volume 8.7 fL (7.4-10.4); Platelet Count 229 10^3/uL (150-450); Red Blood Count 4.63 10^6 /uL (4.18-5.48); Red Cell Distribution Width 15 % (10-15); White Blood Count 8.5 10^3/uL (3.5-10.8)
[2022-01-11 06:33] LABS: Calcium 8.7 mg/dL (8.6-10.3); Potassium 4.2 mmol/L (3.5-5.0)
[2022-01-11] MEDS: CMCS: Epleronone 25 mg TAB (NF) PO SCH (08:24)
[2022-01-11] MEDS ORDERED: Metoprolol Tartrate 5 mg VIAL 5 ml VIAL (1 mg/ml) IV PRN (12:52)
[2022-01-12 07:33] VITALS: BP 148/75
[2022-01-12] MEDS: CMCS: Epleronone 25 mg TAB (NF) PO SCH (09:27)
== END 2022-01-12 09:55 | disposition home or self-care (01) | DRG 55 ==
LOC: ED 09:24 → EDHOLD 16:58 → ICU 16:58 → OR 17:00 → SSU 01-11 09:58
PROVIDERS: ADMIT Neurological Surgery; ATTEND Neurological Surgery